=== PATIENT | male | born 1995 | race Asian ===

== ENCOUNTER 2025-01-09 09:58 | Outpatient (REF) | payer OTHER, SELFPAY ==
--- NOTE | ~2025-01-09 | US_ITS ---
CLINICAL HISTORY: LOW BACK PAIN US kidneys and bladder Comparison: None provided Findings: Right kidney 11.2 cm length. No significant focal abnormality. Left kidney 11.2 cm length. No significant focal abnormality. No bilateral hydronephrosis. Normal bilateral renal echogenicity. The urinary bladder is unremarkable. Prevoid volume 796 mL. Post void volume 54 mL. Bilateral ureteral jets visualized. Impression: No significant abnormalities. Ultrasound prostate gland Heterogeneous prostate measures 4.6 x 3.3 x 3.0 cm. Central area of calcification noted. Prostate volume 23.8 mL. No significant focal abnormality noted. Impression: No significant abnormality This document has been electronically signed by: Olman Mckeon MD on 01/09/2025 22:22:27
== END 2025-01-09 09:59 | disposition home or self-care (01) ==
LOC: HO.UMASIMG 09:58
PROVIDERS: Visit Provider Family Medicine
DX: R74.01 Elevation of levels of liver transaminase levels (principal); M54.50 Low back pain, unspecified
CPT/HCPCS: 76770

== ENCOUNTER → 2025-01-09 13:30 | Outpatient (BNV) | payer OTHER, SELFPAY | PROVIDERS: Visit Provider Radiology Diagnostic Radiology | DX: M54.50 Low back pain, unspecified (principal) | CPT/HCPCS: 76770 ==